=== PATIENT | female | born 1960 | race Caucasian/White ===

== ENCOUNTER 2018-12-26 18:47 | Emergency (ER) | payer OTHER ==
[~2018-12-26] VITALS: Ht 162.6 cm; Wt 63.0 kg
[2018-12-26 19:15] VITALS: Ht 162.6 cm; Wt 63.0 kg
[2018-12-26] MEDS ORDERED: ACETAMINOPHEN 500 MG TAB PO STA (19:34)
[2018-12-26] MEDS ORDERED: IBUP-1542 PO (19:37)
--- NOTE | 2018-12-26 19:43 | ERD ---
ER Documentation Chief Complaint Chief Complaint DENTAL PROBLEM, SENT FOR IM ANTIBIOTICS HPI Patient is a 58-year-old female, no past medical history presents the ER for concerns of dental pain x 3 days. Patient states she was seen by her dentist, Dr. Rowell yesterday. Patient was prescribed amoxicillin advised to return in 1 week after the infection is healed to remove her tooth. She states her right upper incisor tooth is tender to palpation. Patient states she did have a low- grade temperature of 101 earlier today. She states she took ibuprofen. Fever returned so she presents to the ER per recommendation of her dentist. Patient was advised to come to the ER for IM antibiotics. Patient denies any drooling, trismus, hyper extension of her neck. Patient denies any nausea, vomiting, abdominal pain or diarrhea. Patient denies any chest pain or shortness of breath. ROS All systems reviewed and are negative except as per history of present illness. Medications Home Meds Active Scripts Ibuprofen* (Motrin*) 600 Mg Tab, 600 MG PO Q6, #30 TAB Prov:CHAYITO RAND PA-C 12/26/18 Allergies Allergies: Coded Allergies: No Known Drug Allergies (Verified Allergy, Unknown, 12/26/18) FmHx Family History: No diabetes Physical Exam Vitals Vital Signs Date Temp Pulse Resp B/P (MAP) Pulse Ox O2 O2 Flow FiO2 Time Delivery Rate 12/26/18 99.7 82 16 120/54 98 Room Air 20:24 (76) 12/26/18 100.1 88 17 121/56 98 Room Air 19:43 (77) 12/26/18 100.1 19:42 12/26/18 101.1 97 16 114/59 98 19:15 (77) Physical Exam GENERAL: Well-developed, well-nourished female. Appears in no acute distress. Speaking in full sentences HEAD: Normocephalic, atraumatic. EYES: Pupils are equally reactive bilaterally. EOMs grossly intact. No conjunctival erythema. ENT: Right upper incisor is tender to palpation. Jawline is tender to palpation. No active bleeding or discharge. Numerous dental caries noted. Mo ist mucous membranes. No uvula deviation. No kissing tonsils. No drooling. NECK: Supple. No meningismus. Normal range of motion of the neck. LUNG: Clear to auscultation bilaterally. No rhonchi, wheezing, rales or coarse breath sounds. HEART: Regular rate and rhythm. No murmurs, rubs or gallops. EXTREMITIES: Equal pulses bilaterally. No peripheral clubbing, cyanosis or edema. No unilateral leg swelling. NEUROLOGIC: Alert and oriented. Moving all four extremities without any difficulty. Normal speech. Steady gait. SKIN: Normal color. Warm and dry. No rashes or lesions. Results 24 hrs Current Medications Medications Dose Sig/Micky Start Time Status Last (Trade) Ordered Route PRN Stop Time Admin Dose Reason Admin Ibuprofen 600 mg ONCE ONCE 12/26/18 DC 12/26/18 (Motrin) PO 20:00 19:42 12/26/18 20:01 Ceftriaxone 1 gm ONCE ONCE 12/26/18 DC 12/26/18 Sodium IM 20:00 19:42 (Rocephin) 12/26/18 20:01 1,000 mg ONCE STAT 12/26/18 DC 12/26/18 Acetaminophen PO 19:34 19:42 (Tylenol 12/26/18 19:36 Tab) Lidocaine 20 ml ONCE ONCE 12/26/18 DC 12/26/18 (Xylocaine SC 20:00 19:46 1% (Mdv) 20 12/26/18 20:01 ml) Procedures/MDM MEDICAL DECISION MAKING: This is a 58-year-old female who presents to the ER for concerns of dental pain x3 days. Vital signs were reviewed. Patient was febrile at initial presentation with temperature of 101.1F. Patient's initial pulse was noted to be 97 bpm. Patient was not hypoxic. Patient's initial vital signs did meet sirs criteria however patient was extremely well-appearing and nontoxic in appearance. I did discuss the patient's case with supervising physician, Dr. Allen who is in agreement that there is a low suspicion for sepsis at this time. On exam, patient did have reproducible dental pain. Patient was speaking in full sentences. Patient did not have trismus, muffled voice, uvula deviation, unilateral tonsillar swelling, or drooling. No signs of neck swelling or hyperextension of the neck noted. Patient was given ceftriaxone here in the ER. Patient was advised to continue taking amoxicillin as prescribed by her dentist Dr. Rowell. Patient advised to follow-up with her dentist as scheduled. Patient advised to monitor symptoms closely if she has any new or worsening symptoms to return here for reevaluation. At this time, the patient's presentation most consistent with dental pain. Low suspicion for meningitis, epiglottitis, strep pharyngitis, peritonsillar abscess, retropharyngeal abscess, Ludwigs angina, tooth fracture, bleeding dental socket, periodontal abscess, ulcerative gingivitis, deep space infection or osteomyelitis. Patient's vital signs were improved prior to discharge. Patient was nontoxic, [id number] prior to discharge. PRESCRIPTIONS: Ibuprofen DISCHARGE: At this time, patient is stable for discharge and outpatient management. I have instructed the patient to see a dentist today or tomorrow. I have instructed the patient to promptly return to the ER at any time for any new or worsening symptoms including increased pain, fever, swelling, neck swelling, neck stiffness, drooling or difficulty breathing. The patient and/or family expressed understanding of and agreement with this plan. All questions were answered. Home care instructions were provided. Disclaimer: Inadvertent spelling and grammatical errors are likely due to EHR/d ictation software use and do not reflect on the overall quality of patient care. Also, please note that the electronic time recorded on this note does not necessarily reflect the actual time of the patient encounter. Departure Diagnosis: Primary Impression: Pain, dental Additional Impression: Fever Fever type: unspecified Qualified Codes: R50.9 - Fever, unspecified Condition: Fair Patient Instructions: Dental Pain, Fever Control (Adult) Referrals: [facility] YOU HAVE RECEIVED A MEDICAL SCREENING EXAM AND THE RESULTS INDICATE THAT YOU DO NOT HAVE A CONDITION THAT REQUIRES URGENT TREATMENT IN THE EMERGENCY DEPARTMENT. FURTHER EVALUATION AND TREATMENT OF YOUR CONDITION CAN WAIT UNTIL YOU ARE SEEN IN YOUR DOCTORS OFFICE WITHIN THE NEXT 1-2 DAYS. IT IS YOUR RESPONSIBILITY TO MAKE AN APPOINTMENT FOR FOLOW-UP CARE. IF YOU HAVE A PRIMARY DOCTOR --you should call your primary doctor and schedule an appointment IF YOU DO NOT HAVE A PRIMARY DOCTOR YOU CAN CALL OUR PHYSICIAN REFERRAL HOTLINE AT IF YOU CAN NOT AFFORD TO SEE A PHYSICIAN YOU CAN CHOSE FROM THE FOLLOWING [facility] [address] [facility] [address] [facility] [facility] [address] [facility] [address] [facility] [facility] [address] [facility]. [facility]. [address] [facility]. [facility] YOU HAVE RECEIVED A MEDICAL SCREENING EXAM AND THE RESULTS INDICATE THAT YOU DO NOT HAVE A CONDITION THAT REQUIRES URGENT TREATMENT IN THE EMERGENCY DEPARTMENT. FURTHER EVALUATION AND TREATMENT OF YOUR CONDITION CAN WAIT UNTIL YOU ARE SEEN IN YOUR DOCTORS OFFICE WITHIN THE NEXT 1-2 DAYS. IT IS YOUR RESPONSIBILITY TO MAKE AN APPOINTMENT FOR FOLOW-UP CARE. IF YOU HAVE A PRIMARY DOCTOR --you should call your primary doctor and schedule and appointment IF YOU DO NOT HAVE A PRIMARY DOCTOR YOU CAN CALL OUR PHYSICIAN REFERRAL HOTLINE AT . IF YOU CAN NOT AFFORD TO SEE A PHYSICIAN YOU CAN CHOSE FROM THE FOLLOWING [facility] INSTITUTIONS: [facility] [address] [place] [address] [facility] [address] [place] [address] [facility] [address] [place] [address] [facility] DENT[facility] ([facility] walk in clinic) Additional Instructions: Follow-up with your dentist tomorrow morning. Monitor fevers closely. If fevers persist return to the ER for reevaluation. Taking antibiotics as prescribed by her dentist. Call your primary care doctor TOMORROW for an appointment during the next 1-2 days.See the doctor sooner or return here if your condition worsens before your appointment time. CHAYITO RAND PA-C December 26, 2018 19:43
[2018-12-26] MEDS ORDERED: IBUPROFEN 600 MG TAB PO ONE (20:00)
[2018-12-26] MEDS ORDERED: CEFTRIAXONE 1 GM INJ IM ONE (20:00)
[2018-12-26] MEDS ORDERED: LIDOCAINE 1% (MDV) 20 ML INJ SC ONE (20:00)
[2018-12-26 20:24] VITALS: BP 120/54; PULSE 82; RESP 16
== END 2018-12-26 20:24 | disposition home or self-care (01) ==
LOC: FTE 18:47
DX: K08.89 Other specified disorders of teeth and supporting structures (principal)
CPT/HCPCS: 96372; J0696; Z7502; Z7610

== ENCOUNTER 2019-04-04 12:40 | Day surgery (SDC) | payer OTHER ==
[~2019-04-04] VITALS: Ht 157.5 cm; Wt 61.8 kg
[~2019-04-04 12:40] MED LIST: IBUP-1542 PO
[2019-04-04] MEDS ORDERED: PROPOFOL 200 MG INJ ONE (13:00)
[2019-04-04 13:04] VITALS: Ht 157.5 cm; Wt 61.8 kg
[2019-04-04 13:26] VITALS: BP 106/57; PULSE 72; RESP 18
[2019-04-04] MEDS ORDERED: PROPOFOL 40 ML ONE (13:34)
[2019-04-04] MEDS ORDERED: MIDAZOLAM 1 MG/ML 2 ML INJ ONE (13:34)
== END 2019-04-04 14:32 | disposition home or self-care (01) ==
LOC: GIL 12:40
PROVIDERS: ATTEND Internal Medicine Gastroenterology
DX: Z12.11 Encounter for screening for malignant neoplasm of colon (principal); K64.8 Other hemorrhoids
CPT/HCPCS: J2250